=== PATIENT | female | born 1950 | race Caucasian/White ===

== ENCOUNTER → 2018-03-19 | Outpatient (CLI) | payer OTHER, MEDICARE ==
[~2018-03-19] VITALS: Ht 156.2 cm; Wt 52.2 kg
[~2018-03-19] MED LIST: DIOVAN80 MG PO; FERROUS FUMARAT63 MG PO; ULTRAM50 MG PO
== END | disposition home or self-care (01) ==
LOC: AMB 10:35
PROC: 0DBK8ZX Excision of Ascending Colon, Via Natural or Artificial Opening Endoscopic, Diagnostic (ICD-10-PCS; principal; 2018-03-19)
DX: Z12.11 Encounter for screening for malignant neoplasm of colon (principal); D12.2 Benign neoplasm of ascending colon; Z86.010 Personal history of colon polyps; I10 Essential (primary) hypertension; Z87.891 Personal history of nicotine dependence
CPT/HCPCS: 88305; 93005